=== PATIENT | female | born 2000 | race Caucasian/White ===

== ENCOUNTER 2022-03-29 23:03 | Emergency (ER) | payer OTHER ==
--- NOTE | 2022-03-30 00:24 | ER ---
Nurse's Notes [facility] Name: Rosibel Rocha Age: 21 yrs Sex: Female : 2000 Arrival Date: 03/29/2022 Time: 23:14 Bed 17 Private MD: Diagnosis: Other mucopurulent conjunctivitis, bilateral;Acute sinusitis, unspecified Presentation: 03/29 23:33 Chief complaint: Patient states: she's been having allergies for a week but now her bb eyes are swollen, red, and there is discharge from the right eye. Coronavirus screen: At this time, the client does not indicate any symptoms associated with coronavirus-19. Ebola Screen: No symptoms or risks identified at this time. 23:33 Method Of Arrival: Ambulatory bb 23:35 Initial Sepsis Screen: Does the patient meet any 2 criteria? No. Patient's initial bb sepsis screen is negative. Does the patient have a suspected source of infection? No. Patient's initial sepsis screen is negative. Risk Assessment: Do you want to hurt yourself or someone else? Patient reports no desire to harm self or others. Onset of symptoms was March 28, 2022. 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 - Social history:: Smoking status: Patient denies any tobacco usage or history of. Screenin:30 [facility] ED Fall Risk Assessment (Adult) History of falling in the last 3 months, ha1 including since admission No falls in past 3 months (0 pts) Confusion or Disorientation No (0 pts) Intoxicated or Sedated No (0 pts) Impaired Gait No (0 pts) Mobility Assist Device Used No (0 pt) Altered Elimination No (0 pt) Score/Fall Risk Level 0 - 2 = Low Risk Oriented to surroundings, Maintained a safe environment, Educated pt \T\ family on fall prevention, incl call for assistance when getting out of bed, Hourly rounding (assess needs \T\ fall precautionary measures) done. 12/25 00:25 Abuse screen: Denies threats or abuse. Denies injuries from another. Nutritional ha1 screening: No deficits noted. Tuberculosis screening: No symptoms or risk factors identified. Assessment: 03/29 23:25 General: Appears uncomfortable, Behavior is calm, cooperative, appropriate for age. ha1 Pain: Complains of pain in nose and around the eyes Pain does not radiate. Pain currently is 7 out of 10 on a pain scale. Alleviated by medications. Neuro: Level of Consciousness is awake, alert, obeys commands, Oriented to person, place, time, situation, Appropriate for age. Neuro: Level of Consciousness is Oriented to. Cardiovascular: Patient's skin is warm and dry. Respiratory: Airway is patent Respiratory effort is even, unlabored, Respiratory pattern is regular, symmetrical, Parent/caregiver reports the patient having seasonal allergies that has been going on for the past week. it has caused some swelling around the eyes. GI: No signs and/or symptoms were reported involving the gastrointestinal system. Abdomen is flat, non-distended. EENT: Eyes redness . Derm: Skin is pink, warm \T\ dry. Musculoskeletal: Circulation, motion, and sensation intact. Range of motion: intact in all extremities. 03/30 00:10 Reassessment: pt. refused to be test for strep, flu, Covid, and RSV. notified care ha1 provider. 00:25 Reassessment: Patient and/or family updated on plan of care and expected duration. Pain ha1 level reassessed. Patient is alert, oriented x 3, equal unlabored respirations, skin warm/dry/pink. 00:53 Reassessment: Patient and/or family updated on plan of care and expected duration. Pain ha1 level reassessed. Patient is alert, oriented x 3, equal unlabored respirations, skin warm/dry/pink. monitoring for adverse reaction. Vital Signs: 03/29 23:33 BP 115 / 81; Pulse 106; Resp 16 S; Temp 98(O); Pulse Ox 99% on R/A; Weight 65.77 kg bb (R); Height 5 ft. 0 in. (152.40 cm) (R); Pain 5/10; 03/30 00:25 BP 115 / 81; Pulse 92; Resp 16 S; Pulse Ox 100% on R/A; ha1 03/29 23:33 Body Mass Index 28.32 (65.77 kg, 152.40 cm) bb ED Course: 03/29 23:14 Patient arrived in ED. john 23:22 Bala Wolfe PA is PHCP. joey 23:22 Nabil Vieira MD is Attending Physician. cp 23:25 Patient has correct armband on for positive identification. Bed in low position. Call ha1 light in reach. Side rails up X 1. Adult w/ patient. 23:35 Triage completed. bb 23:35 Arm band placed on Patient placed in an exam room, on a stretcher, on pulse oximetry. bb Family accompanied patient. 23:45 Camilla Rose, KAYY is Primary Nurse. ha1 03/30 01:00 No provider procedures requiring assistance completed. Patient did not have IV access ha1 during this emergency room visit. Administered Medications: 00:43 Drug: Gentamicin Drops 0.3 % 1 drops Route: Ophthalmic; Site: both eyes; ha1 01:00 Follow up: Response: No adverse reaction ha1 00:43 Drug: Rocephin (cefTRIAXone) 1 grams Route: IM; Site: right ventrogluteal; ha1 01:00 Follow up: Response: No adverse reaction ha1 Medication: 01:01 VIS not applicable for this client. ha1 Outcome: 00:23 Discharge ordered by MD. cp 01:00 Discharged to home ambulatory, with family. ha1 01:00 Condition: stable 01:00 Discharge instructions given to patient, family, Instructed on discharge instructions, follow up and referral plans. medication usage, Demonstrated understanding of instructions, follow-up care, medications, Prescriptions given X 3. 01:02 Patient left the ED. ha1 Signatures: Marion Soto RN RN Bala Dale PA PA cp Alexander, Jessica ja2 Ayala, Heidy, KAYY RN ha1 Corrections: (The following items were deleted from the chart) 00:53 00:10 Reassessment: pt. refused to be test for strep, flu, Covid, and RSV ha1 ha1
--- NOTE | 2022-03-30 00:24 | EDPHYS ---
Physician Documentation [facility] Name: Rosibel Rocha Age: 21 yrs Sex: Female : 2000 Arrival Date: 03/29/2022 Time: 23:14 Bed 17 Private MD: ED Physician Nabil Vieira HPI: 03/30 00:00 This 21 yrs old Female presents to ER via Ambulatory with complaints of Allergy cp Symptoms, Eye Swelling, Blurred Vision. 00:00 The patient is experiencing blurred vision, matting or discharge, redness, to the right cp eye, caused by an unknown mechanism. Onset: The symptoms/episode began/occurred today. Associated signs and symptoms: Pertinent positives: runny nose, nasal congestion, sore throat, sinus pressure/pain times 1 week. 00:00 Patient wears glasses, wears soft contacts. Severity of symptoms: in the emergency cp department the symptoms are unchanged despite home interventions. 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 - Social history:: Smoking status: Patient denies any tobacco usage or history of. ROS: 03/30 00:05 Constitutional: Negative for body aches, chills, fever, poor PO intake. cp 00:05 Eyes: Positive for blurry vision, discharge, redness, swelling, of the right eye and cp left eye, Negative for vision loss. 00:05 ENT: Positive for ear pain, rhinorrhea, sinus congestion, sinus pain, sore throat, Negative for drainage from ear(s), difficulty swallowing, difficulty handling secretions. 00:05 Respiratory: Positive for cough, Negative for shortness of breath, wheezing. 00:05 Abdomen/GI: Negative for abdominal pain, vomiting, diarrhea, constipation. 00:05 Skin: Negative for rash. 00:05 All other systems are negative. Exam: 00:10 Constitutional: The patient appears in no acute distress, alert, awake, non-toxic, well cp developed, well nourished. 00:10 Head/Face: Normocephalic, atraumatic. cp 00:10 Eyes: Periorbital structures: appear normal, Pupils: equal, round, and reactive to light and accomodation, Extraocular movements: intact throughout, Conjunctiva: exudate, bilaterally, injected, bilaterally, Lids and lashes: mild swelling of bilateral upper and lower lids. 00:10 ENT: External ear(s): are unremarkable, Ear canal(s): are normal, clear, TM's: dullness, bilaterally, Nose: nasal drainage, that is minimal, and is seen coming from both nares, Mouth: Lips: moist, Oral mucosa: moist, Posterior pharynx: Airway: no evidence of obstruction, patent, Tonsils: with erythema, mild enlargement, no exudate. 00:10 Neck: ROM/movement: is normal, is supple, without pain, no range of motions limitations, no meningismus. 00:10 Chest/axilla: Inspection: normal. 00:10 Cardiovascular: Rate: tachycardic, Rhythm: regular. 00:10 Respiratory: the patient does not display signs of respiratory distress, Respirations: normal, no use of accessory muscles, no retractions, labored breathing, is not present, Breath sounds: decreased breath sounds, are not appreciated, stridor, is not appreciated, + upper airway congestion. wheezing: is not appreciated. 00:10 Skin: no rash present. Vital Signs: 03/29 23:33 BP 115 / 81; Pulse 106; Resp 16 S; Temp 98(O); Pulse Ox 99% on R/A; Weight 65.77 kg bb (R); Height 5 ft. 0 in. (152.40 cm) (R); Pain /10; 03/30 00:25 BP 115 / 81; Pulse 92; Resp 16 S; Pulse Ox 100% on R/A; ha1 03/29 23:33 Body Mass Index 28.32 (65.77 kg, 152.40 cm) bb MDM: 03/29 23:23 Patient medically screened. cp 03/30 00:00 Differential diagnosis: Infectious conjunctivitis in both eyes. strep throat, cp influenza, otitis media, sinusitis, COVID-19. 00:23 Data reviewed: vital signs, nurses notes. cp 00:23 Counseling: I had a detailed discussion with the patient and/or guardian regarding: the cp historical points, exam findings, and any diagnostic results supporting the discharge/admit diagnosis, to return to the emergency department if symptoms worsen or persist or if there are any questions or concerns that arise at home, do not wear contact lenses for duration of use of antibiotic eye drops. Administered Medications: 00:43 Drug: Gentamicin Drops 0.3 % 1 drops Route: Ophthalmic; Site: both eyes; ha1 01:00 Follow up: Response: No adverse reaction ha1 00:43 Drug: Rocephin (cefTRIAXone) 1 grams Route: IM; Site: right ventrogluteal; ha1 01:00 Follow up: Response: No adverse reaction ha1 Disposition Summary: 03/30/22 00:23 Discharge Ordered Location: Home cp Problem: new cp Symptoms: have improved cp Condition: Stable cp Diagnosis - Other mucopurulent conjunctivitis, bilateral cp - Acute sinusitis, unspecified cp Followup: cp - With: Private Physician - When: 2 - 3 days - Reason: Recheck today's complaints Discharge Instructions: - Discharge Summary Sheet cp - Bacterial Conjunctivitis, Adult cp - Sinusitis, Adult cp Forms: - Medication Reconciliation Form cp - Thank You Letter cp - Antibiotic Education cp - Prescription Opioid Use cp Prescriptions: - Augmentin 875-125 mg Oral Tablet - take 1 tablet by ORAL route every 12 hours for 10 days; 20 tablet; Refills: 0, cp Product Selection Permitted - Vigamox 0.5 % Ophthalmic Drops - instill 1 drop by OPHTHALMIC route every 8 hours for 7 days; 5 milliliter; cp Refills: 0, Product Selection Permitted - Flonase Allergy Relief 50 mcg/actuation Nasal spray,suspension - spray 1 spray by INTRANASAL route once daily for 14-21 days; 1 Device; Refills: cp 0, Product Selection Permitted Addendum: 03/31/2022 07:14 Co-signature as Attending Physician, Nabil Vieira MD I agree with the assessment and r t plan of care. Signatures: Dispatcher [employer] Marion Ashraf RN RN bb Bala Wolfe PA PA cp Camilla Rose RN RN ha1 Nabil Vieira MD MD rt
[2022-03-30] MEDS ORDERED: CEFTRIAXONE 1000 MG/VIAL ONE (00:32)
[2022-03-30] MEDS ORDERED: WATER FOR INJ,STERILE 10 ML ONE (00:32)
[2022-03-30] MEDS ORDERED: GENTAMICIN 0.3% OPTH DROP 5ML ONE (00:32)
[2022-03-30 01:11] VITALS: BP 115/81; TEMP 98
[2022-03-30 01:12] VITALS: O2SAT 100
== END 2022-03-30 01:02 | disposition home or self-care (01) ==
LOC: ER 23:03
DX: H10.023 Other mucopurulent conjunctivitis, bilateral (principal); J01.90 Acute sinusitis, unspecified
CPT/HCPCS: 96372; 99283